=== PATIENT | female | born 1985 | race African-American/Black ===

== ENCOUNTER 2023-02-28 17:21 | Inpatient (IN) | payer MEDICAID ==
[~2023-02-28] VITALS: Ht 177.8 cm; Wt 137.5 kg
[2023-02-28 20:31] LABS: Basophils # (auto) 0 10 ^3/uL (0-0.2); Basophils % (auto) 0.3 % (0.0-2.0); Eosinophils # (auto) 0.1 10 ^3/uL (0-0.8); Eosinophils % (auto) 1.3 % (0.0-7.0); Hematocrit 32.9 % (36.0-46.0); Lymphocytes # (auto) 2.7 10 ^3/uL (0.4-5.4); Lymphocytes % (auto) 41.8 % (10.0-50.0); Mean Corpuscular Hemoglobin 33.1 pg (28.0-32.0); Mean Corpuscular Hgb Conc. 33.5 g/dL (32.0-36.0); Mean Corpuscular Volume 99.1 fL (80.0-100.0); Monocytes # (auto) 0.6 10 ^3/uL (0-1.3); Monocytes % (auto) 9.1 % (0.0-12.0); Neutrophils # (auto) 3.1 10 ^3/uL (1.6-8.6); Neutrophils % (auto) 47.5 % (37.0-80.0); Nucleated Red Blood Cells % 0.2 %; Red Blood Cells 3.32 10^6/uL (4.0-5.20); Red Cell Distribution Width 14.1 % (11.8-14.3); White Blood Cell 6.5 10^3/uL (4.4-10.8)
[2023-02-28 20:49] LABS: INR 0.95 (0.9-1.15); Partial Thromboplastin Time 26.2 sec (24.6-33.4)
[2023-02-28 20:50] LABS: Albumin 2.9 g/dL (3.4-5.0); Calcium 9.1 mg/dL (8.5-10.1); Magnesium 2.1 mg/dL (1.6-2.6); Potassium 4.2 mmol/L (3.5-5.1)
[2023-02-28 20:53] LABS: BUN/Creatinine Ratio 13.5 (10.0-20.0)
[2023-02-28 20:56] LABS: Bilirubin, Total 0.3 mg/dL (0.2-1.0); Total Protein 8.1 g/dL (6.4-8.2)
[2023-02-28] MEDS ORDERED: SODIUM CHLORIDE 0.9% 1,000 ML IV ONE (21:15)
[2023-02-28] MEDS ORDERED: ONDANSETRON HCL 4 MG/2 ML VIAL IV ONE (21:15)
[2023-03-01] MEDS ORDERED: DexAMETHasone SOD PHOS 10MG/1ML VIAL INJ IV ONE (00:45)
[2023-03-01] MEDS ORDERED: cefTRIAXone 1GM/50ML D5W 50 ML IV ONE (00:45)
[2023-03-01] MEDS ORDERED: AZITHROMYCIN 500MG/ 250ML 250 ML IV ONE (00:45)
[2023-03-01] MEDS ORDERED: ACETAMINOPHEN 325 MG TAB PO PRN (03:30)
[2023-03-01] MEDS ORDERED: MORPHINE SULFATE INJ 2 MG/ml SYRG IV PRN (03:30)
[2023-03-01] MEDS ORDERED: ONDANSETRON HCL 4 MG/2 ML VIAL IV PRN (03:30)
[2023-03-01] MEDS ORDERED: TEMAZEPAM 15 MG CAP PO PRN (03:30)
[2023-03-01] MEDS ORDERED: NITROGLYCERIN 0.4 MG SL TAB SL PRN (03:30)
[2023-03-01 04:17] LABS: Urine Bacteria NONE SEEN /hpf (None Seen); Urine Blood Negative /uL (Negative); Urine Specific Gravity 1.007 (1.001-1.035); Urine WBC 1 /hpf (0 - 5)
[2023-03-01] MEDS ORDERED: FUROSEMIDE 20 MG TAB PO SCH (10:00)
[2023-03-01] MEDS: PANTOPRAZOLE 40 MG TAB PO SCH (11:16)
[2023-03-01 18:50] LABS: Protein, Urine 9.4 mg/dL (0.0-11.9)
[2023-03-01] MEDS ORDERED: ATORVASTATIN 20 MG TAB PO SCH (22:00)
[2023-03-01] MEDS: FLUDROCORTISONE ACETATE 0.1 MG TAB PO SCH (23:15)
[2023-03-01 23:25] VITALS: BP 92/54
[2023-03-01 23:42] VITALS: BP 92/54
[2023-03-02] VITALS (7 sets, daily range): BP systolic 88–125; BP diastolic 46–61
[2023-03-02] MEDS ORDERED: MONT-8 PO (01:06)
[2023-03-02] MEDS ORDERED: RISP2TAB62 PO (01:06)
[2023-03-02] MEDS ORDERED: VARE1TAB PO (01:06)
[2023-03-02] MEDS ORDERED: DIVA500T13 PO (01:06)
[2023-03-02] MEDS ORDERED: BECL80AE11 IN (01:06)
[2023-03-02] MEDS ORDERED: FLUO-126 PO (01:06)
[2023-03-02] MEDS ORDERED: FURO20TA3 PO (01:06)
[2023-03-02] MEDS ORDERED: BICT1TAB PO (01:06)
[2023-03-02] MEDS ORDERED: BENZ1TAB2 PO (01:06)
[2023-03-02] MEDS ORDERED: SITA50TA PO (01:06)
[2023-03-02 08:29] LABS: Basophils # (auto) 0 10 ^3/uL (0-0.2); Eosinophils # (auto) 0 10 ^3/uL (0-0.8); Eosinophils % (auto) 0.1 % (0.0-7.0); Lymphocytes % (auto) 30.6 % (10.0-50.0); Monocytes # (auto) 0.7 10 ^3/uL (0-1.3)
[2023-03-02 08:31] LABS: Basophils % (auto) 0.4 % (0.0-2.0); Hematocrit 32.6 % (36.0-46.0); Hemoglobin 11.3 g/dL (12.2-16.2); Mean Corpuscular Hemoglobin 33.6 pg (28.0-32.0); Mean Corpuscular Hgb Conc. 34.5 g/dL (32.0-36.0); Mean Corpuscular Volume 97.2 fL (80.0-100.0); Monocytes % (auto) 6.9 % (0.0-12.0); Nucleated Red Blood Cells % 0.1 %; Red Blood Cells 3.35 10^6/uL (4.0-5.20); Red Cell Distribution Width 14.2 % (11.8-14.3); White Blood Cell 9.7 10^3/uL (4.4-10.8)
[2023-03-02 08:54] LABS: Albumin 2.6 g/dL (3.4-5.0); Potassium 4.1 mmol/L (3.5-5.1)
[2023-03-02 08:57] LABS: BUN/Creatinine Ratio 20.2 (10.0-20.0); Bilirubin, Total 0.1 mg/dL (0.2-1.0); Total Protein 7.6 g/dL (6.4-8.2)
[2023-03-02] MEDS: PANTOPRAZOLE 40 MG TAB PO SCH (10:49)
[2023-03-02] MEDS: FLUDROCORTISONE ACETATE 0.1 MG TAB PO SCH (10:49)
[2023-03-02 14:30] LABS: Hepatitis C Antibody Negative (Negative)
[2023-03-02] MEDS ORDERED: HYDROCORTISONE SOD SUCC 100 MG/2ML INJ VIAL IV ONE (15:00)
[2023-03-02] MEDS ORDERED: FLU01T PO (15:51)
== END 2023-03-02 18:52 | disposition home or self-care (01) | DRG 469 ==
LOC: ER 17:21 → TELE 03-01 03:37 → TELE-WESTW 03-01 22:02
PROVIDERS: ADMIT Nurse Practitioner; ATTEND Hospitalist
DX: N17.0 Acute kidney failure with tubular necrosis (principal); I13.0 Hypertensive heart and chronic kidney disease with heart failure and stage 1 through stage 4 chronic kidney disease, or unspecified chronic kidney disease; E44.0 Moderate protein-calorie malnutrition; I50.9 Heart failure, unspecified; D63.1 Anemia in chronic kidney disease; I95.9 Hypotension, unspecified; J45.909 Unspecified asthma, uncomplicated; E66.01 Morbid (severe) obesity due to excess calories; N18.9 Chronic kidney disease, unspecified; Z20.822 Contact with and (suspected) exposure to COVID-19; Z68.41 Body mass index [BMI] 40.0-44.9, adult
CPT/HCPCS: 36415; 70450; 71045; 76775; 80053; 80164; 81001; 82306; 82533; 82570; 83735; 83880; 83970; 84100; 84156; 84300; 84443; 84484; 84550; 85025; 85610; 85652; 85730; 86160; 86803; 87340; 87426; 93005; 93306; 96360; G0378; J0696; J1100

== ENCOUNTER 2023-03-05 12:05 | Emergency (ER) | payer MEDICAID ==
[~2023-03-05] VITALS: Ht 177.8 cm; Wt 133.0 kg
[~2023-03-05 12:05] MED LIST: BECL80AE11 IN; BENZ1TAB2 PO; BICT1TAB PO; DIVA500T13 PO; FLU01T PO; FLUO-126 PO; FURO20TA3 PO; MONT-8 PO; RISP2TAB62 PO; SITA50TA PO; VARE1TAB PO
[2023-03-05 13:22] LABS: Basophils # (auto) 0 10 ^3/uL (0-0.2); Basophils % (auto) 0.3 % (0.0-2.0); Eosinophils # (auto) 0 10 ^3/uL (0-0.8); Eosinophils % (auto) 0.7 % (0.0-7.0); Hematocrit 32.6 % (36.0-46.0); Hemoglobin 11.1 g/dL (12.2-16.2); Lymphocytes # (auto) 2.8 10 ^3/uL (0.4-5.4); Lymphocytes % (auto) 46.4 % (10.0-50.0); Mean Corpuscular Hemoglobin 32.8 pg (28.0-32.0); Mean Corpuscular Volume 96.5 fL (80.0-100.0); Monocytes # (auto) 0.4 10 ^3/uL (0-1.3); Monocytes % (auto) 6.6 % (0.0-12.0); Neutrophils # (auto) 2.7 10 ^3/uL (1.6-8.6); Nucleated Red Blood Cells % 0.1 %; Red Blood Cells 3.38 10^6/uL (4.0-5.20); Red Cell Distribution Width 14.5 % (11.8-14.3); White Blood Cell 5.9 10^3/uL (4.4-10.8)
[2023-03-05 13:49] LABS: Albumin 2.8 g/dL (3.4-5.0); Potassium 3.5 mmol/L (3.5-5.1)
[2023-03-05 13:55] LABS: BUN/Creatinine Ratio 11.5 (10.0-20.0); Bilirubin, Total 0.3 mg/dL (0.2-1.0); Total Protein 7.2 g/dL (6.4-8.2)
[2023-03-05] MEDS ORDERED: LACTATED RINGER'S 1,000 ML IV ONE (14:30)
[2023-03-05 15:14] LABS: Urine Bacteria NONE SEEN /hpf (None Seen); Urine Blood Negative /uL (Negative); Urine Hyaline Cast MOD /lpf (0 - 2); Urine Specific Gravity 1.012 (1.001-1.035); Urine WBC <1 /hpf (0 - 5)
[2023-03-05 18:08] VITALS: BP 104/55
== END 2023-03-05 18:43 | disposition home or self-care (01) ==
LOC: ER 12:05
DX: I95.9 Hypotension, unspecified (principal); E86.0 Dehydration; J45.909 Unspecified asthma, uncomplicated; Z32.02 Encounter for pregnancy test, result negative
CPT/HCPCS: 36415; 80053; 81001; 81025; 84484; 85025; 96360; 96361

== ENCOUNTER 2023-05-12 10:28 | Emergency (ER) | payer MEDICAID ==
[~2023-05-12] VITALS: Ht 152.4 cm; Wt 133.9 kg
[~2023-05-12 10:28] MED LIST changes: -BENZ1TAB2 PO; +BENZ1TAB6 PO
[2023-05-12 10:57] VITALS: BP 111/72
[2023-05-12] MEDS ORDERED: ACETAMINOPHEN 500 MG TAB PO ONE (11:15)
[2023-05-12] MEDS ORDERED: BACDST PO (11:17)
[2023-05-12] MEDS ORDERED: CEPH500C PO (11:18)
[2023-05-12] MEDS ORDERED: IBUP-1456 PO (11:18)
== END 2023-05-12 11:31 | disposition home or self-care (01) ==
LOC: ER 10:28
DX: S30.810A Abrasion of lower back and pelvis, initial encounter (principal); J45.909 Unspecified asthma, uncomplicated; I10 Essential (primary) hypertension; Z88.2 Allergy status to sulfonamides; Z88.6 Allergy status to analgesic agent; Z79.899 Other long term (current) drug therapy; W57.XXXA Bitten or stung by nonvenomous insect and other nonvenomous arthropods, initial encounter; Y93.89 Activity, other specified; Y92.89 Other specified places as the place of occurrence of the external cause; Y99.8 Other external cause status
CPT/HCPCS: 82962

== ENCOUNTER 2023-05-26 12:53 | Emergency (ER) | payer MEDICAID ==
[~2023-05-26] VITALS: Ht 177.8 cm; Wt 60.5 kg
[~2023-05-26 12:53] MED LIST changes: +BACDST PO; +CEPH500C PO; +IBUP-1456 PO
[2023-05-26 14:18] VITALS: BP 117/73
== END 2023-05-26 15:07 | disposition home or self-care (01) ==
LOC: ER 12:53
DX: J45.909 Unspecified asthma, uncomplicated (principal); I10 Essential (primary) hypertension; Z48.00 Encounter for change or removal of nonsurgical wound dressing